=== PATIENT | female | born 1950 | race Asian ===

== ENCOUNTER 2019-02-23 12:21 | Emergency (ER) | payer MEDICARE, BC ==
[~2019-02-23] VITALS: Wt 87.0 kg
[~2019-02-23 12:21] MED LIST: AMLO2.5T78 PO; CALC-134 PO; EPIN0.3P4 INJ; FER325 PO; IRBE300T13 PO; LACT1CAP47 PO; LEVO75TA5 PO; LEVO88TA3 PO; LORA1TAB PO; METF-849 PO; PRED20TA PO; SIMV20TA2 PO
[2019-02-23] MEDS ORDERED: predniSONE 20 MG TAB PO ONE (14:30)
[2019-02-23 14:31] VITALS: BP 142/87; PULSE 84; RESP 18
== END 2019-02-23 14:32 | disposition home or self-care (01) ==
LOC: FTE 12:21
DX: K14.9 Disease of tongue, unspecified (principal); I10 Essential (primary) hypertension; J45.909 Unspecified asthma, uncomplicated; E11.9 Type 2 diabetes mellitus without complications; Z79.84 Long term (current) use of oral hypoglycemic drugs
CPT/HCPCS: 99283; J7512